=== PATIENT | female | born 1950 | race Caucasian/White ===

== ENCOUNTER → 2019-12-01 | Outpatient (CLI) | payer MEDICARE ==
--- NOTE | 2019-12-05 13:53 | MM ---
Reason for exam: screening (asymptomatic). Last mammogram was performed 1 year and 1 month ago. History: Patient is postmenopausal and had first child at age 36. Physical Findings: A clinical breast exam by your physician is recommended on an annual basis and results should be correlated with mammographic findings. MG 3D Screening Mammo W/Cad Bilateral CC, MLO, and XCCL view(s) were taken. Prior study comparison: October 31, 2018, mammogram, performed at [facility]. October 11, 2017, mammogram, performed at [facility]. The breast tissue is extremely dense which could obscure a lesion on mammography. Focal asymmetry left medial CC, stable. No significant changes when compared with prior studies. ASSESSMENT: Benign, BI-RAD 2 RECOMMENDATION: Routine screening mammogram of both breasts in 1 year.
== END | disposition home or self-care (01) ==
LOC: RADMAMWWP 09:19
PROVIDERS: ATTEND Internal Medicine Geriatric Medicine
DX: Z12.31 Encounter for screening mammogram for malignant neoplasm of breast (principal)
CPT/HCPCS: 77063; 77067

== ENCOUNTER → 2020-05-30 | Outpatient (CLI) | payer MEDICARE ==
--- NOTE | 2020-05-30 10:03 | BD ---
EXAMINATION TYPE: Axial Bone Density DATE OF EXAM: 05/30/2020 COMPARISON: NONE CLINICAL HISTORY: 69 YR OLD FEMALE......ICD-10 CODE: M81.0 AGE RELATED OSTEOPOROSIS Height: 66 Weight: 149 FRAX RISK QUESTIONS: NOTHING TO NOTE HERE RISK FACTORS HISTORY OF: LT FINGER A CHILD Postmenopausal woman: YES, AT ABOUT 52 YRS OLD Hyperparathyroidism: YES, REMOVAL OF BOTH PARATHYROIDS Adrenal Insufficiency: NO MEDICATIONS: Prednisone or other steroids: NOT REGULARLY Additional Medications: CALCIUM AND VIT D, CENTERLINE, STATIN FOR CHOLESTEROL, Additional History: DEPRESSION, CHOLESTEROL EXAM MEASUREMENTS: Bone mineral densitometry was performed using the [employer] System. Bone mineral density as measured about the Lumbar spine is: ----- L1-L4(G/cm2): 1.129 T Score Values are as follows: ----- L1: -1.2 ----- L2: -0.9 ----- L3: 0.4 ----- L4: -0.1 ----- L1-L4: -0.4 Bone mineral density FIRST DEXA STUDY AT [facility] Bone mineral density about the R hip (g/cm2): 0.986 Bone mineral density about the L hip (g/cm2): 0.971 T Score values are as follows: -----R Neck: -0.9 -----L Neck: -1.2 -----R Total: -0.2 -----L Total: -0.3 Bone mineral density FIRST DEXA SCAN AT [facility] FRAX%s: THERE IS A 8.7% CHANCE FOR A MAJOR OSTEOPOROTIC FX AND A 0.9% FOR HIP.....PROBABILITY FOR FX IN 10 YRS TIME IMPRESSION: Osteopenia (T Score between -2.5 and -1) femoral neck level in the left hip. There is slightly increased risk of fracture and the patient may be considered for treatment. Re-Screen 2-5 years. NOTE: T-SCORE=SD OF THE YOUNG ADULT MEAN.
== END ==
LOC: RADBDWWP 07:57
PROVIDERS: ATTEND Internal Medicine Geriatric Medicine
DX: M85.852 Other specified disorders of bone density and structure, left thigh (principal)
CPT/HCPCS: 77080

== ENCOUNTER 2020-07-10 08:23 | Day surgery (SDC) | payer MEDICARE ==
[2020-07-08 12:27] VITALS: BMI 23.5
[~2020-07-10 08:23] MED LIST: LACTATED RINGERS 1,000 ML IV SCH; LIDOCAINE 1% (10MG/ML) FOR IV START INTRADERMA PRN
[2020-07-10 08:50] VITALS: TEMP 98.2
[2020-07-10 09:04] LABS: Glucose,Whole Blood 105 mg/dL (75-99)
[2020-07-10] MEDS ORDERED: PROPOFOL 10 MG/ML 20 ML VIAL IV ONE (09:16)
--- NOTE | 2020-07-10 09:37 | P.PCN ---
Date of Procedure: 07/10/20 Procedure(s) Performed: BRIEF HISTORY: Patient is a 69-year-old pleasant white female scheduled for an elective colonoscopy as a part of screening for colorectal neoplasia. She has family history of colon cancer diagnosed in her father at age 65. PROCEDURE PERFORMED: Colonoscopy. PREOPERATIVE DIAGNOSIS: Screening for colon cancer/family history of colon cancer. IV sedation per Anesthesia. PROCEDURE: After informed consent was obtained, the patient, was brought into the endoscopy unit. IV sedation was administered by Anesthesia under continuous monitoring. Digital rectal examination was normal. Initially the Olympus CF-160 flexible video colonoscope was then inserted in the rectum, gradually advanced into the cecum without any difficulty. Careful examination was performed as the scope was gradually being withdrawn. Ileocecal valve and the appendiceal orifice were visualized and appeared normal. Prep was excellent. Mucosa of the cecum, ascending colon, transverse colon, descending colon, sigmoid colon, and rectum appeared normal. Scattered sigmoid diverticulosis seen. Retroflexion was performed in the rectum and no lesions were seen. The patient tolerated the procedure well. IMPRESSION: Normal-appearing colon from rectum to cecum with no evidence of colorectal neoplasia . Scattered sigmoid diverticulosis. RECOMMENDATIONS: Findings of this examination were discussed with the patient as well as a family. She was advised to have a repeat screening colonoscopy every 5 years because of the family history of colon cancer..
[2020-07-10 09:59] VITALS: BP 116/70; PULSE 64; RESP 16
== END 2020-07-10 10:34 | disposition home or self-care (01) ==
LOC: ORWHC2ENDO 08:23
PROVIDERS: ATTEND Internal Medicine Gastroenterology
DX: Z12.11 Encounter for screening for malignant neoplasm of colon (principal); Z80.0 Family history of malignant neoplasm of digestive organs; K57.30 Diverticulosis of large intestine without perforation or abscess without bleeding; J44.9 Chronic obstructive pulmonary disease, unspecified; Z88.8 Allergy status to other drugs, medicaments and biological substances; Z79.899 Other long term (current) drug therapy
CPT/HCPCS: J2704; G0121

== ENCOUNTER → 2020-12-04 | Outpatient (CLI) | payer MEDICARE ==
--- NOTE | 2020-12-06 14:38 | MM ---
Reason for exam: screening (asymptomatic). Last mammogram was performed 1 year ago. History: Patient is postmenopausal and had first child at age 36. Family history of breast cancer in maternal cousin at age 50. Took hormonal contraceptives for 6 months. Physical Findings: A clinical breast exam by your physician is recommended on an annual basis and results should be correlated with mammographic findings. MG 3D Screening Mammo W/Cad Bilateral CC and MLO view(s) were taken. Prior study comparison: December 01, 2019, bilateral MG 3d screening mammo w/cad. October 31, 2018, mammogram, performed at [facility]. October 11, 2017, mammogram, performed at [facility]. The breast tissue is heterogeneously dense. This may lower the sensitivity of mammography. There is chronic nodularity in the left breast upper outer quadrant. No significant changes when compared with prior studies. ASSESSMENT: Negative, BI-RAD 1 RECOMMENDATION: Routine screening mammogram of both breasts in 1 year.
== END | disposition home or self-care (01) ==
LOC: RADMAMWWP 11:00
PROVIDERS: ATTEND Internal Medicine Geriatric Medicine
DX: Z12.31 Encounter for screening mammogram for malignant neoplasm of breast (principal); Z80.3 Family history of malignant neoplasm of breast
CPT/HCPCS: 77063; 77067

== ENCOUNTER → 2022-01-23 | Outpatient (CLI) | payer MEDICARE ==
--- NOTE | 2022-01-26 20:32 | MM ---
Reason for Exam: Screening (asymptomatic). Last mammogram was performed 1 year(s) and 1 month(s) ago. Patient History: Menarche at age 14. First Full-Term at age 36. Late child-bearing (after 30). Hysterectomy at age 57. Postmenopausal. Patient has history of breast feeding. Hormonal Contraceptives for 6 months. Maternal cousin had breast cancer, age 50. Risk Values: Paige 5 year model risk: 2.4%. NCI Lifetime model risk: 7.3%. Prior Study Comparison: 10/31/2018 Screening Mammogram, [facility]. 12/01/2019 Bilateral Screening Mammogram, [facility]. 12/04/2020 Bilateral Screening Mammogram, [facility]. Tissue Density: The breast tissue is heterogeneously dense. This may lower the sensitivity of mammography. Findings: Analyzed By CAD. Chronic nodularity upper outer quadrant left breast. There is no suspicious group of microcalcifications or new suspicious mass in either breast. Overall Assessment: Benign, BI-RAD 2 Management: Screening Mammogram of both breasts in 1 year. 1. Patient should continue monthly self breast exams. 2. A clinical breast exam by your physician is recommended on an annual basis. 3. This exam should not preclude additional follow-up of suspicious palpable abnormalities. Electronically signed and approved by: Isha Hidalgo M.D. Radiologist
== END | disposition home or self-care (01) ==
LOC: RADMAMWWP 10:07
PROVIDERS: ATTEND Internal Medicine Geriatric Medicine
DX: Z12.31 Encounter for screening mammogram for malignant neoplasm of breast (principal); Z78.0 Asymptomatic menopausal state; Z80.3 Family history of malignant neoplasm of breast
CPT/HCPCS: 77063; 77067

== ENCOUNTER → 2023-01-25 | Outpatient (CLI) | payer MEDICARE ==
--- NOTE | 2023-01-26 18:44 | MM ---
Reason for Exam: Screening (asymptomatic). Last screening mammogram was performed 12 month(s) ago. Patient History: Menarche at age 14. First Full-Term at age 36. Late child-bearing (after 30). Hysterectomy at age 57. Postmenopausal. Patient has history of breast feeding. Hormonal Contraceptives for 6 months. Maternal cousin had breast cancer, age 50. Risk Values: Paige 5 year model risk: 2.4%. NCI Lifetime model risk: 6.9%. Prior Study Comparison: 12/01/2019 Bilateral Screening Mammogram, [facility]. 12/04/2020 Bilateral Screening Mammogram, [facility]. 01/23/2022 Bilateral MG 3D screening mammo w/cad, [facility]. Tissue Density: The breast tissue is heterogeneously dense. This may lower the sensitivity of mammography. Findings: Analyzed By CAD. Chronic nodularity on the left. There is no suspicious group of microcalcifications or new suspicious mass in either breast. Overall Assessment: Benign, BI-RAD 2 Management: Screening Mammogram of both breasts in 1 year. . Patient should continue monthly self-breast exams. A clinical breast exam by your physician is recommended on an annual basis. This exam should not preclude additional follow-up of suspicious palpable abnormalities. Note on Paige scores and lifetime risk: 1. A Paige score greater than 3% is considered moderate risk. If this is the case, consider specialist referral to assess eligibility for a risk reducing agent. 2. If overall lifetime risk for the development of breast cancer is 20% or higher, the patient may qualify for future screening with alternating mammogram and breast MRI. Electronically signed and approved by: Isha Hidalgo M.D. Radiologist
== END | disposition home or self-care (01) ==
LOC: RADMAMWWP 11:31
PROVIDERS: ATTEND Internal Medicine Geriatric Medicine
DX: Z12.31 Encounter for screening mammogram for malignant neoplasm of breast (principal); Z78.0 Asymptomatic menopausal state; Z80.3 Family history of malignant neoplasm of breast
CPT/HCPCS: 77063; 77067

== ENCOUNTER → 2024-02-01 | Outpatient (CLI) | payer MEDICARE ==
--- NOTE | 2024-02-06 19:01 | MM ---
Reason for Exam: Screening (asymptomatic). Last mammogram was performed 1 year(s) and 1 month(s) ago. Patient History: Menarche at age 14. First Full-Term at age 36. Late child-bearing (after 30). Hysterectomy at age 57. Postmenopausal. Patient has history of breast feeding. Hormonal Contraceptives for 6 months. Maternal cousin had breast cancer, age 50. Risk Values: Paige 5 year model risk: 2.4%. NCI Lifetime model risk: 6.6%. Prior Study Comparison: 12/04/2020 Bilateral Screening Mammogram, [facility]. 01/23/2022 Bilateral MG 3D screening mammo w/cad, [facility]. 01/25/2023 Bilateral MG 3D screening mammo w/cad, [facility]. Tissue Density: The breasts are extremely dense, which lowers the sensitivity of mammography. Findings: Analyzed By CAD. The pattern is symmetrical. Pattern is stable. No suspicious groups of microcalcifications, spiculated or lobular masses, architectural distortion or other secondary signs of malignancy are mammographically apparent. Overall Assessment: Negative, BI-RAD 1 Management: Screening Mammogram of both breasts in 1 year. A negative mammogram report should not preclude additional follow up of suspicious palpable abnormalities. Patient should continue monthly self breast exam. A clinical breast exam by your physician is recommended on an annual basis and results should be correlated with mammographic findings. Note on Paige scores and lifetime risk: 1. A Paige score greater than 3% is considered moderate risk. If this is the case, consider specialist referral to assess eligibility for a risk reducing agent. 2. If overall lifetime risk for the development of breast cancer is 20% or higher, the patient may qualify for future screening with alternating mammogram and breast MRI. [facility], , 02/06/2024 6:58 PM. Electronically signed and approved by: Toni Saez D.O. Radiologis
== END | disposition home or self-care (01) ==
LOC: RADMAMWWP 08:27
PROVIDERS: ATTEND Internal Medicine Geriatric Medicine
DX: Z12.31 Encounter for screening mammogram for malignant neoplasm of breast (principal); Z78.0 Asymptomatic menopausal state; Z80.3 Family history of malignant neoplasm of breast
CPT/HCPCS: 77063; 77067